=== PATIENT | male | born 1985 | race Caucasian/White ===

== ENCOUNTER 2023-06-15 06:59 | Day surgery (SDC) | payer OTHER ==
[2023-06-12 14:34] VITALS: BMI 28.7
[2023-06-15] MEDS ORDERED: BUPIVACAINE HCL/PF 0.25% (2.5MG/ML) 10 ML VIAL ONE (07:43)
[2023-06-15] MEDS ORDERED: EPINEPHrine 1:1,000 1,000 MCG/ML ML ONE (07:43)
[2023-06-15] MEDS ORDERED: oxyCODONE HCL 5 MG TABLET PO PRN ×2 (08:45)
[2023-06-15] MEDS ORDERED: LACTATED RINGERS SOLUTION 1,000 ML IV SCH (08:45)
[2023-06-15] MEDS ORDERED: MIDAZOLAM HCL 2 MG/2 ML SINGLE DOSE VIAL ONE (08:50)
[2023-06-15] MEDS ORDERED: PROPOFOL 20 ML ONE (09:09)
[2023-06-15] MEDS: BUPIVACAINE HCL/PF 0.25% (2.5MG/ML) 10 ML VIAL IJ ONE (09:26)
[2023-06-15 11:44] VITALS: RESP 19; TEMP 97.9
[2023-06-15 12:25] VITALS: BP 136/78; PULSE 68
== END 2023-06-15 12:00 | disposition home or self-care (01) ==
LOC: FASU 06:59
PROVIDERS: ATTEND Orthopaedic Surgery Sports Medicine
PROC: 0SBC4ZZ Excision of Right Knee Joint, Percutaneous Endoscopic Approach (ICD-10-PCS; principal; 2023-06-15 09:27)
DX: S83.241A Other tear of medial meniscus, current injury, right knee, initial encounter (principal); X58.XXXA Exposure to other specified factors, initial encounter; Y92.9 Unspecified place or not applicable; Y93.9 Activity, unspecified
CPT/HCPCS: 94760